=== PATIENT | female | born 1965 | race African-American/Black ===

== ENCOUNTER 2017-01-24 08:57 | Day surgery (SDC) | payer OTHER ==
[2017-01-24 09:43] VITALS: BMI 24.2
[2017-01-24 12:02] VITALS: TEMP 97.7
[2017-01-24 12:24] VITALS: PULSE 76
[2017-01-24 12:31] VITALS: BP 112/67
--- NOTE | 2017-01-25 14:32 | PATH ---
Surgical Pathology Report Patient Name: WILLA ELIAS [facility] [place]. Rec. #: [id number] /Age/Gender: 1965 (Age: 51) / F Account: [id number] Location: [facility]-ENDOSCOPY Taken: 01/24/2017 Received: 01/24/2017 Reported: 01/25/2017 Physicians: Arturo Yoder M.D. Specimen(s) Received POLYP PROXIMAL TRANSVERSE COLON Clinical History Screening Colon polyp, diverticulosis, sigmoid stricture Final Diagnosis COLON, PROXIMAL TRANSVERSE, POLYP, POLYPECTOMY: FRAGMENTS OF TUBULAR ADENOMA. Electronically Signed Awais Wallace M.D. Gross Description Received in formalin, labeled "polyp proximal transverse colon" are 3 franklin, irregular to polypoid portions of soft tissue ranging from 0.3-0.8 cm in greatest dimension. The specimens are submitted in toto in one cassette. /01/24/201701/24/2017
== END 2017-01-24 12:31 | disposition home or self-care (01) ==
LOC: JASU-ENDO 08:57
PROVIDERS: ATTEND Internal Medicine Gastroenterology
PROC: 0DBL8ZX Excision of Transverse Colon, Via Natural or Artificial Opening Endoscopic, Diagnostic (ICD-10-PCS; principal; 2017-01-24 10:30)
DX: Z12.11 Encounter for screening for malignant neoplasm of colon (principal); D12.3 Benign neoplasm of transverse colon
CPT/HCPCS: 88305-TC

== ENCOUNTER 2017-01-31 08:51 | Day surgery (SDC) | payer OTHER ==
[2017-01-30 14:18] VITALS: BMI 20.9
[2017-01-31 10:53] VITALS: TEMP 97.9
[2017-01-31 11:56] VITALS: PULSE 79
[2017-01-31 13:48] VITALS: BP 118/71
--- NOTE | 2017-02-01 11:54 | PATH ---
Surgical Pathology Report Patient Name: WILLA ELIAS [facility]. Rec. #: [id number] /Age/Gender: 1965 (Age: 51) / F Account: [id number] Location: [facility]-ENDOSCOPY Taken: 01/31/2017 Received: 01/31/2017 Reported: 02/01/2017 Physicians: Arturo Yoder M.D. Specimen(s) Received A: BX DUODENUM B: BX EROSIONS IN ANTRUM C: BX ERYTHEMA OF GASTRIC BODY D: BX ESOPHAGUS Clinical History Persistent epigastric pain despite PPI Erosions in antrum, hiatal hernia, duodenal polyp, rule out eosinophilic esophagitis Final Diagnosis A. DUODENUM, POLYP, BIOPSY: DUODENAL MUCOSA WITH NO PATHOLOGIC CHANGES. NO HISTOLOGIC EVIDENCE OF GLUTEN SENSITIVE ENTEROPATHY (CELIAC SPRUE) IDENTIFIED. NO ADENOMATOUS CHANGE IS IDENTIFIED. B. STOMACH, ANTRUM, BIOPSY: REACTIVE GASTROPATHY. IMMUNOSTAIN FOR H. PYLORI IS NEGATIVE. C. STOMACH, BODY, BIOPSY: GASTRIC FUNDIC MUCOSA WITH NO PATHOLOGIC CHANGES. IMMUNOSTAIN FOR H. PYLORI IS NEGATIVE. D. ESOPHAGUS, BIOPSY: SQUAMOUS EPITHELIUM WITH NO PATHOLOGIC CHANGES. NO EOSINOPHILIC ESOPHAGITIS IDENTIFIED. Electronically Signed Johnny Acharya M.D. Gross Description A. Received in formalin, labeled "biopsy polyp at duodenum" is a franklin, irregular portion of soft tissue measuring 0.2 cm. in greatest dimension. The specimen is submitted in toto in one cassette. B. Received in formalin, labeled "biopsy erosions in antrum" are 2 franklin, irregular portions of soft tissue measuring 0.1-0.3 cm. in greatest dimension. The specimens are submitted in toto in one cassette. C. Received in formalin, labeled "biopsy erythema of gastric body" is a franklin, irregular portion of soft tissue measuring 0.3 cm. in greatest dimension. The specimen is submitted in toto in one cassette. D. Received in formalin, labeled "differential ring rule out eosinophilic esophagitis" are 2 pieces of galindo tissue measuring 0.2 cm. in greatest dimension. The specimens are submitted in toto in one cassette. [facility]/01/31/2017 [facility]/01/31/2017
== END 2017-01-31 11:30 | disposition home or self-care (01) ==
LOC: JASU-ENDO 08:51
PROVIDERS: ATTEND Internal Medicine Gastroenterology
PROC: 0DB68ZX Excision of Stomach, Via Natural or Artificial Opening Endoscopic, Diagnostic (ICD-10-PCS; 2017-01-31)
PROC: 0DB58ZX Excision of Esophagus, Via Natural or Artificial Opening Endoscopic, Diagnostic (ICD-10-PCS; 2017-01-31)
PROC: 0DB98ZX Excision of Duodenum, Via Natural or Artificial Opening Endoscopic, Diagnostic (ICD-10-PCS; principal; 2017-01-31 09:30)
DX: K31.7 Polyp of stomach and duodenum (principal); R10.13 Epigastric pain; K25.9 Gastric ulcer, unspecified as acute or chronic, without hemorrhage or perforation; K44.9 Diaphragmatic hernia without obstruction or gangrene
CPT/HCPCS: 88305-TC; 88342-TC

== ENCOUNTER 2020-10-12 11:22 | Emergency (ER) | payer OTHER ==
[2020-10-12 11:30] VITALS: BP 99/63; PULSE 85; TEMP 98.3; BMI 23.8
== END 2020-10-12 12:58 | disposition home or self-care (01) ==
LOC: JERFT 11:22
DX: H61.23 Impacted cerumen, bilateral (principal)
CPT/HCPCS: 99282-25

== ENCOUNTER 2020-10-12 18:25 | Emergency (ER) | payer OTHER ==
[2020-10-12 18:40] VITALS: BP 109/66; PULSE 87; TEMP 98.2; BMI 23.3
== END 2020-10-12 19:11 | disposition home or self-care (01) ==
LOC: JERFT 18:25
DX: H61.22 Impacted cerumen, left ear (principal)
CPT/HCPCS: 99282-25

== ENCOUNTER 2020-10-22 09:59 | Emergency (ER) | payer OTHER ==
[2020-10-22] MEDS ORDERED: ASPIRIN 81 MG CHEWABLE TABLETS PO ONE (10:16)
[2020-10-22 10:18] VITALS: BMI 23.3
[2020-10-22] MEDS ORDERED: ASPIRIN 81 MG CHEWABLE TABLETS ONE (10:39)
[2020-10-22 10:50] LABS: BASO % 0.5 % (0-2.0); EOS % 2.9 % (0-4.5); HEMATOCRIT 35.3 % (32.4-45.2); HEMOGLOBIN 11.6 GM/dL (10.7-15.3); LYMPH % 57.9 % (8-40); MCH 26.7 pg (25.7-33.7); MCHC 32.9 g/dl (32.0-36.0); MEAN CELL VOLUME 81.3 fl (80-96); MONO % 6.4 % (3.8-10.2); NEUT % 32.3 % (42.8-82.8); PLATELET COUNT 468 10^3/uL (134-434); RBC 4.34 M/mm3 (3.60-5.2); RDW 14.7 % (11.6-15.6); WHITE BLOOD COUNT 7.1 K/mm3 (4.0-10.0)
[2020-10-22 10:51] LABS: MEAN PLT VOLUME 5.8 fl (7.5-11.1)
[2020-10-22 11:11] LABS: CHLORIDE 109 mmol/L (98-107); SODIUM 144 mmol/L (136-145)
[2020-10-22 11:15] LABS: ALBUMIN 4.1 g/dl (3.4-5.0); ANION GAP 5 MMOL/L (8-16); CO2 30 mmol/L (21-32); GLUCOSE,RANDOM 105 mg/dL (74-106)
[2020-10-22 11:16] LABS: CALCIUM 9.5 mg/dL (8.5-10.1); LIPASE 100 U/L (73-393)
[2020-10-22 11:18] LABS: SGOT/AST 16 U/L (15-37)
[2020-10-22 11:19] LABS: CREATININE 0.8 mg/dL (0.55-1.3); SGPT/ALT 17 U/L (13-61)
[2020-10-22 11:20] LABS: ALK PHOS 86 U/L (45-117); BILIRUBIN,TOTAL 0.3 mg/dL (0.2-1); TOT PROT 7.6 g/dl (6.4-8.2)
[2020-10-22] MEDS ORDERED: ACETAMINOPHEN INJECTION 100 ML IVPB ONE (12:29)
[2020-10-22 16:48] VITALS: BP 110/79; PULSE 79; TEMP 98.9
== END 2020-10-22 16:45 | disposition left against medical advice (07) ==
LOC: JER 09:59
DX: R07.9 Chest pain, unspecified (principal)
CPT/HCPCS: 36415; 70498-TC; 71045-TC-FY; 71275-TC; 80053; 83690; 84484; 84703; 85025; 93005; 93010; 99285-25; Q9967

== ENCOUNTER 2021-07-15 01:53 | Emergency (ER) | payer OTHER ==
[2021-07-15 02:04] VITALS: BP 113/68; PULSE 84; TEMP 97.2; BMI 22.6
[2021-07-15] MEDS ORDERED: predniSONE 20 MG TABLET (UD) PO ONE (03:19)
[2021-07-15] MEDS ORDERED: diphenhydrAMINE HCL 25 MG CAPSULE (FP) PO ONE ×2 (03:19→03:24)
[2021-07-15] MEDS ORDERED: predniSONE 20 MG TABLET (UD) ONE (03:24)
[2021-07-16] MEDS ORDERED: EPINEPHrine/PF 1 MG/1 ML (1:1,000) AMPULE ONE (09:11)
== END 2021-07-15 04:09 | disposition home or self-care (01) ==
LOC: JER 01:53
DX: T78.40XA Allergy, unspecified, initial encounter (principal)
CPT/HCPCS: 99283-25

== ENCOUNTER 2022-08-08 14:55 | Observation (INO) | payer OTHER ==
[2022-08-08] MEDS ORDERED: ACETAMINOPHEN 1000 MG/100 ML BAG IVPB ONE (15:17)
[2022-08-08] MEDS ORDERED: METOCLOPRAMIDE HCL INJECTION 10 MG/2 ML VIAL IVPB ONE (15:17)
[2022-08-08] MEDS ORDERED: SODIUM CHLORIDE 0.9% 500 ML INFUS.BAG IV ONE ×2 (15:17→20:09)
[2022-08-08] MEDS ORDERED: METOCLOPRAMIDE HCL INJECTION 10 MG/2 ML VIAL ONE (16:19)
[2022-08-08] MEDS ORDERED: ACETAMINOPHEN INJECTION 100 ML IVPB ONE (16:20)
[2022-08-08 16:29] LABS: BASO % 0.5 % (0-2.0); EOS % 0.2 % (0-4.5); HEMATOCRIT 36.6 % (32.4-45.2); HEMOGLOBIN 11.9 GM/dL (10.7-15.3); LYMPH % 17.6 % (8-40); MCH 25.3 pg (25.7-33.7); MCHC 32.4 g/dl (32.0-36.0); MEAN CELL VOLUME 78.2 fl (80-96); MEAN PLT VOLUME 6.4 fl (7.5-11.1); MONO % 7.8 % (3.8-10.2); NEUT % 73.9 % (42.8-82.8); PLATELET COUNT 478 10^3/uL (134-434); RBC 4.69 M/mm3 (3.60-5.2); RDW 14.6 % (11.6-15.6)
[2022-08-08] MEDS ORDERED: AZITHROMYCIN 500 MG TABLET PO ONE (16:41)
[2022-08-08 16:43] LABS: INR 1.31 (0.83-1.09); PROTHROMBIN TIME (PATIENT) 15.1 SEC (9.7-13.0)
[2022-08-08 16:46] LABS: ACTIVATED PTT 38.7 SECONDS (25.2-36.5)
[2022-08-08] MEDS ORDERED: MAG HYDROX/AL HYDROX/SIMETH 30 ML UNIT-DOSE CUP PO ONE (17:19)
[2022-08-08] MEDS ORDERED: FAMOTIDINE 10 MG TABLET PO ONE (17:19)
[2022-08-08 17:25] LABS: CHLORIDE 100 mmol/L (98-107); SODIUM 137 mmol/L (136-145)
[2022-08-08 17:27] LABS: ANION GAP 13 MMOL/L (8-16); CO2 24 mmol/L (21-32); MAGNESIUM 2.4 mg/dL (1.8-2.4)
[2022-08-08 17:28] LABS: CALCIUM 9.8 mg/dL (8.5-10.1); GLUCOSE,RANDOM 83 mg/dL (74-106)
[2022-08-08 17:30] LABS: CREATININE 0.8 mg/dL (0.55-1.3)
[2022-08-08 17:31] LABS: SGOT/AST 17 U/L (15-37); SGPT/ALT 22 U/L (13-61)
[2022-08-08 17:32] LABS: CHOLESTEROL 149 mg/dL (50-200); TOT PROT 8.3 g/dl (6.4-8.2)
[2022-08-08 17:33] LABS: BILIRUBIN,TOTAL 0.5 mg/dL (0.2-1); HDL CHOLESTEROL 58 mg/dL (40-60); LDL CHOLESTEROL (ONLY SJRH) 72 mg/dL (5-100)
[2022-08-08 17:34] LABS: ALK PHOS 97 U/L (45-117)
[2022-08-08] MEDS ORDERED: AZITHROMYCIN 250 MG TABLET ONE (17:52)
[2022-08-08] MEDS ORDERED: FAMOTIDINE 20 MG TABLET ONE (17:53)
[2022-08-08] MEDS ORDERED: MAG HYDROX/AL HYDROX/SIMETH 30 ML UNIT-DOSE CUP ONE (17:53)
[2022-08-08] MEDS ORDERED: DOCUSATE SODIUM 100 MG CAPSULE (FP) PO PRN (19:38)
[2022-08-08] MEDS ORDERED: ACETAMINOPHEN 1000 MG/100 ML BAG IVPB PRN (23:00)
[2022-08-09] MEDS: INSULIN SLIDING SCALE (NOVOLOG) 1 VIAL SQ SCH ×5 (02:23→22:11)
[2022-08-09 05:04] VITALS: RESP 18
[2022-08-09 07:37] VITALS: BMI 23.3
[2022-08-09 09:48] LABS: BLOOD UREA NITROGEN 8.6 mg/dL (7-18)
[2022-08-09 09:51] LABS: CREATININE 0.7 mg/dL (0.55-1.3)
[2022-08-09 10:22] LABS: BASO % 0.4 % (0-2.0); EOS % 1.1 % (0-4.5); HEMATOCRIT 33.1 % (32.4-45.2); HEMOGLOBIN 10.9 GM/dL (10.7-15.3); LYMPH % 40.2 % (8-40); MCH 25.9 pg (25.7-33.7); MEAN CELL VOLUME 78.4 fl (80-96); MEAN PLT VOLUME 6.5 fl (7.5-11.1); MONO % 8.2 % (3.8-10.2); NEUT % 50.1 % (42.8-82.8); PLATELET COUNT 459 10^3/uL (134-434); RBC 4.22 M/mm3 (3.60-5.2); RDW 14.6 % (11.6-15.6); WHITE BLOOD COUNT 8.4 K/mm3 (4.0-10.0)
[2022-08-09] MEDS ORDERED: LORazepam 2 MG/ML SDV VIAL IVPB ONE ×2 (11:01→13:30)
[2022-08-09] MEDS: AZITHROMYCIN 250 MG TABLET PO SCH (16:59)
[2022-08-09] MEDS ORDERED: MIRTAZAPINE 15 MG TABLET (FP) PO SCH (22:00)
[2022-08-09] MEDS ORDERED: ACETAMINOPHEN 325 MG TABLET (FP) PO PRN (23:00)
[2022-08-10] MEDS: INSULIN SLIDING SCALE (NOVOLOG) 1 VIAL SQ SCH ×2 (06:48→11:11)
[2022-08-10] MEDS: metFORMIN HCL 500 MG TABLET (FP) PO SCH ×2 (09:26→09:29)
[2022-08-10] MEDS: AZITHROMYCIN 250 MG TABLET PO SCH (09:26)
[2022-08-10] MEDS ORDERED: ROSUVASTATIN CA 10 MG TABLET PO SCH (10:00)
[2022-08-10] MEDS ORDERED: PANTOPRAZOLE 40 MG TABLET PO SCH (10:00)
[2022-08-10 11:03] VITALS: BP 100/58; PULSE 91; TEMP 99.7
== END 2022-08-10 12:15 | disposition home or self-care (01) ==
LOC: JER 14:55 → JERBED 19:42 → J4W 08-09 05:30
PROVIDERS: ADMIT Internal Medicine; ATTEND Family Medicine
PROC: 3E033NZ Introduction of Analgesics, Hypnotics, Sedatives into Peripheral Vein, Percutaneous Approach (ICD-10-PCS; principal; 2022-08-08)
PROC: 3E0337Z Introduction of Electrolytic and Water Balance Substance into Peripheral Vein, Percutaneous Approach (ICD-10-PCS; 2022-08-08)
DX: E11.9 Type 2 diabetes mellitus without complications (principal); E78.5 Hyperlipidemia, unspecified; I10 Essential (primary) hypertension; G45.9 Transient cerebral ischemic attack, unspecified; J32.9 Chronic sinusitis, unspecified; Z88.0 Allergy status to penicillin; Z88.8 Allergy status to other drugs, medicaments and biological substances; J44.9 Chronic obstructive pulmonary disease, unspecified; K21.9 Gastro-esophageal reflux disease without esophagitis; D72.829 Elevated white blood cell count, unspecified; Z87.891 Personal history of nicotine dependence; Z85.41 Personal history of malignant neoplasm of cervix uteri
CPT/HCPCS: 0241U-QW; 36415; 70450-TC; 70551-TC; 71045-TC-FY; 80048; 80053; 80061; 82550; 82553; 82962; 83036; 83735; 84484; 84703; 85025; 85610; 85730; 86850; 86900; 86901; 93005; 93010; 93880-TC; 96374; 96375; 96376; 99285-25; G0378

== ENCOUNTER 2023-01-01 09:48 | Emergency (ER) | payer OTHER ==
[2023-01-01 09:56] VITALS: BP 110/65; PULSE 70; RESP 18; TEMP 98.3; BMI 24.2
[2023-01-01] MEDS ORDERED: ACETAMINOPHEN 500 MG TABLET (FP) PO ONE (10:34)
[2023-01-01] MEDS ORDERED: ACETAMINOPHEN 500 MG TABLET (FP) ONE (10:41)
== END 2023-01-01 10:48 | disposition home or self-care (01) ==
LOC: JERFT 09:48
DX: H92.03 Otalgia, bilateral (principal)
CPT/HCPCS: 99282-25